=== PATIENT | female | born 1985 | race Caucasian/White ===

== ENCOUNTER 2024-02-24 05:57 | Emergency (ER) | payer MEDICAID, SELFPAY ==
[2024-02-24 06:15] VITALS: BP 126/86; PULSE 94; RESP 18; TEMP 36.7; O2SAT 99; BMI 33.1
--- NOTE | 2024-02-24 07:11 | ED_ITS ---
HPI - General Adult General Chief complaint: Vaginal Bleeding Stated complaint: abnormal vaginal bleeding Time Seen by Provider: 02/24/24 06:43 Source: patient Mode of arrival: ambulatory Limitations: no limitations History of Present Illness HPI narrative: 38-year-old female presents to the ED with a heavy menstrual cycle. She reports that her menstrual cycles are irregular, typically having 8 or so per year but they may come monthly and then may come once every 3 months or so. She did have a menstrual cycle last month as well. Reports that she did not have a lot of cramps or other warning that her menstrual cycle was coming, she had some mucus yesterday and then light bleeding. The bleeding became more heavy this morning and she started having pea-sized clots which is abnormal for her. Is not soaki ng through a pad per hour, pads are actually not at all soaked. She does report that she has had 3 children in the past and has had her tubes tied now. Denies chance of . No dizziness, lightheadedness or shortness of breath. Admits that she is anxious about the menstrual cycle. She does disclose that she started taking wegovy a few weeks ago after a couple months on zepbound. Denies prior history of pelvic surgeries, no use of anticoagulants. Home medications reviewed and accurate. Nonsmoker. Allergies to BuSpar and Celebrex which are intolerances ROS notable for the menstrual symptoms as above only, otherwise denies times 12 systems. Related Data Home Medications ?Medication ?Instructions ?Recorded ?Confirmed semaglutide (weight loss) 0.5 0.5 mg subcut Q7D 02/24/24 02/24/24 mg/0.5 mL subcutaneous pen injector (Wegovy) venlafaxine 37.5 mg 37.5 mg PO 3XD 02/24/24 02/24/24 capsule,extended release 24 hr Allergies Allergy/AdvReac Type Severity Reaction Status Date / Time buspirone [From BuSpar] AdvReac Severe Suicidal Verified 02/24/24 06:19 Thoughts celecoxib [From Celebrex] AdvReac Severe Suicidal Verified 02/24/24 06:19 Thoughts Exam Const: Vital Signs, click to edit/add: Vital Signs - 24 hr 02/24/24 06:15 Temperature 98.1 F Pulse Rate [Right Pulse Oximeter] 94 Respiratory Rate 18 Blood Pressure [Ri ght Upper Arm] 126/86 Pulse Oximetry 99 Oxygen Delivery Me thod Room Air Documenting provider has reviewed patient's vital signs: yes Common normals: no apparent distress General appearance: comfortable and well kempt HENMT: Common normals: normocephalic and oropharynx normal Head and scalp: normocephalic Mouth: oral and palatal mucosa normal Eye: Common normals: conjunctivae normal General eye: normal appearance of both eyes Conjunctiva: conjunctiva(e) normal Resp: Common normals: normal respiratory effort Effort & inspection: able to speak in complete sentences : Common normals: external appearance normal, appearance of the vagina normal and appearance of the cervix normal Other: Moderate vaginal bleeding, dark red in color. Few stringy clots none larger than IP. Bimanual exam with non gravid feeling uterus, cannot discretely feel her ovaries due to body habitus but no obvious mass or enlargement. Extremity: Common normals: normal to inspection and normal capillary refill Psych: Appearance: well kempt Attitude: engaged Activity/motor behavior: appropriate eye contact Attention/concentration: attention grossly intact Insight: insight good Judgement: judgment good Skin: Common normals: no rashes or lesions noted General skin exam: no rashes or lesions noted Course Course ED Course: Stable vital signs, no hypotension, tachycardia. No heavy bleeding seen on pelvic exam. No large clots. Recommended a test and hemoglobin. Counseled that there could be a connection between her use of wegovy and a change in her menstrual cycles. This is often seen and is assigned often of hormone scientology and tends to improve after a few cycles. Alarm symptoms reviewed that would warrant ED presentation. I would recommend that she make a follow-up appointment with her primary care provider to further discuss her menstrual cycles, consider thyroid testing if it has not been done within the last year, pelvic ultrasound if symptoms persist. She should definitely see them if the bleeding last longer than 7 days or if she has more than to heavy cycles in a row. Okay to use Tylenol and/or ibuprofen for any cramps. Vital Signs Vital signs: Initial Vital Signs Temperature 98.1 F 02/24/24 06:15 Temperature Source Temporal Artery Scan 02/24/24 06:15 Pulse Rate 94 02/24/24 06:15 Respiratory Rate 18 02/24/24 06:15 Blood Pressure 126/86 02/24/24 06:15 Blood Pressure Mean 99 02/24/24 06:15 Blood Pressure Position Sitting 02/24/24 06:15 Pulse Oximetry 99 02/24/24 06:15 Oxygen Delivery Method Room Air 02/24/24 06:15 Vital Signs Temperature 98.1 F 02/24/24 06:15 Pulse Rate 94 02/24/24 06:15 Respiratory Rate 18 02/24/24 06:15 Blood Pressure 126/86 02/24/24 06:15 Pulse Oximetry 99 02/24/24 06:15 Oxygen Delivery Method Room Air 02/24/24 06:15 Temperature 98.1 F 02/24/24 06:15 Pulse Rate 94 02/24/24 06:15 Respiratory Rate 18 02/24/24 06:15 Blood Pressure 126/86 02/24/24 06:15 Pulse Oximetry 99 02/24/24 06:15 Oxygen Delivery Method Room Air 02/24/24 06:15 Medical Decision Making Lab Data Lab results reviewed: Yes I reviewed the patient's lab results Lab results narrative: Hemoglobin appropriate, no leukocytosis, test negative. Labs: Lab Results 02/24/24 02/24/24 Range/Units 07:15 07:25 WBC 7.15 (4.50-11.00) K/uL RBC 3.78 L (4.00-5.20) m/uL Hgb 11.9 L (12.0-16.0) gm/dL Hct 35.8 (33.0-51.0) % MCV 95 (80-100) fL MCH 32 (26-34) pg MCHC 33 (32-36) gm/dL RDW Coeff of Kavita 12.9 (11.5-15.5) % Plt Count 352 (140-440) K/uL Neut % (Auto) 62.1 (42.0-72.0) % Lymph % (Auto) 28.4 (20-44) % [place] % (Auto) 7.8 (0.0-11.0) % Eos % (Auto) 1.3 (0.0-7.0) % Baso % (Auto) 0.3 (0.0-3.0) % Neut # (Auto) 4.44 (1.7-7.0) K/uL Lymph # (Auto) 2.03 (0.90-2.90) K/uL [place] # (Auto) 0.60 (0.00-0.90) K/UL Eos # (Auto) 0.09 (0.00-0.50) K/uL Baso # (Auto) 0.02 (0.00-0.30) K/uL Abs Immat Gran (auto) 0.01 (0.00-0.30) K/uL Imm/Tot Granulo (auto) 0.1 % Urine HCG, Qual Negative (Negative) Discharge Plan Discharge Clinical Impression: Dysfunctional uterine bleeding Patient Disposition: Home w/ Parent or Adult Condition: Stable Instructions: Abnormal (Dysfunctional) Uterine Bleeding (ED) Additional Instructions: As we discussed, your bleeding is abnormal for you but is not a dangerous amount as long as this does not persist for more than a few days. Please come back to the emergency department if you are feeling very weak, dizzy, short of breath from the bleeding or if you have very large clots or are more than soaking through a full pad every hour for more than a few hours in a row. It is okay to use Tylenol and/or ibuprofen as needed for any cramping or pain. I do wonder if there is a connection between your use of wegovy and this heavy period, But in a positive light. We use those medications now for PCOS, anovulatory cycles and infertility because they can help rebalance hormones. Often, you will have a few very heavy periods and then things will normalize. I would recommend that if her bleeding persists for more than 7 days that you follow-up with your primary care provider to discuss management and if you have more than to heavy cycles in a row, you should also discuss this with her primary care provider. Your blood work today does not show any signs of anemia. You may return to unrestricted work, school, all other activities. Your hemoglobin is 11.9 today and her test is of course negative. Activity Level: No Restrictions Discharge Diet: Regular Prescriptions: No Action Wegovy 0.5 mg/0.5 mL pen injector 0.5 mg subcut Q7D venlafaxine 37.5 mg capsule,extended release 24hr 37.5 mg PO 3XD Follow Up/Referrals: Farhad Calvo MD [Primary Care Provider] - Stand Alone Forms: [employer] Info Instructions
[2024-02-24 07:23] LABS: Basophils Absolute Auto 0.02 K/uL (0.00-0.30); Basophils Percent Auto 0.3 % (0.0-3.0); Eosinophils Absolute Auto 0.09 K/uL (0.00-0.50); Eosinophils Percent Auto 1.3 % (0.0-7.0); Hematocrit 35.8 % (33.0-51.0); Hemoglobin* 11.9 gm/dL (12.0-16.0); Immature Granulocytes Abs Auto 0.01 K/uL (0.00-0.30); Immature Granulocytes Pct Auto 0.1 %; Lymphocytes Absolute Auto 2.03 K/uL (0.90-2.90); Lymphocytes Percent Auto 28.4 % (20-44); Mean Corpuscular HGB Conc 33 gm/dL (32-36); Mean Corpuscular Hemoglobin 32 pg (26-34); Mean Corpuscular Volume 95 fL (80-100); Monocytes Percent Auto 7.8 % (0.0-11.0); Neutrophils Absolute Auto 4.44 K/uL (1.7-7.0); Neutrophils Percent Auto 62.1 % (42.0-72.0); Platelet Count* 352 K/uL (140-440); RDW Coefficient of Variation % 12.9 % (11.5-15.5); Red Blood Count 3.78 m/uL (4.00-5.20); White Blood Count* 7.15 K/uL (4.50-11.00)
[2024-02-24 07:27] LABS: Slide Review Reflex No
[2024-02-24 07:33] LABS: Ur HCG Qualitative* Negative (Negative)
== END 2024-02-24 07:46 | disposition home or self-care (01) ==
PROVIDERS: Emergency Provider Family Medicine; PCP Family Medicine
DX: N93.8 Other specified abnormal uterine and vaginal bleeding (principal)
CPT/HCPCS: 36415; 81025; 85025; 99283

== ENCOUNTER 2024-05-19 00:25 | Emergency (ER) | payer MEDICAID, SELFPAY ==
[2024-05-19 01:07] VITALS: BP 122/79; PULSE 101; RESP 24; TEMP 36.5; O2SAT 98; BMI 32.9
--- NOTE | 2024-05-19 01:28 | CRLHL7_ITS ---
For Patients: As a result of the Century Cures Act, medical imaging exams and procedure reports are released immediately into your electronic medical record. You may view this report before your referring provider. If you have questions, please contact your health care provider. INDICATION: Abdominal pain. TECHNIQUE: CT abdomen and pelvis acquired with 89 cc of Isovue 370 IV contrast. COMPARISON: None. FINDINGS: Lower chest: Unremarkable. Liver: Diffuse fatty infiltration. Normal contour. No suspicious mass. Gallbladder and bile ducts: Unremarkable. No stones or inflammation. No biliary dilatation. Pancreas: Unremarkable. No mass or inflammation. Spleen: Unremarkable. Normal in size. No masses. Adrenal glands: Unremarkable. No nodules. Kidneys: Unremarkable. No suspicious masses, stones, or hydronephrosis. GI tract: Unremarkable. Normal in caliber. No sign of mass or inflammation. Normal appendix. Vasculature: Abdominal aorta is normal in caliber. Mesenteric arteries are patent. Lymph nodes: No lymphadenopathy. Peritoneum/Abdominal Wall: Tiny fat-containing umbilical hernia. No free air or significant free fluid. Pelvis: Unremarkable. Bones: Unremarkable for age. IMPRESSION: 1. No acute findings within the abdomen or pelvis. Normal appendix. 2. Hepatic steatosis. Please note that all CT scans at this facility use dose modulation, iterative reconstruction, and/or weight-based dosing when appropriate to reduce radiation dose to as low as reasonably achievable. Dictated by Duncan Farr MD @ 05/19/2024 2:07:01 AM (Electronically Signed)
--- NOTE | 2024-05-19 01:29 | ED.ABDPAIN ---
HPI - Abdominal Pain General Chief Complaint: Abdominal Pain Stated Complaint: upper abdominal and back pain Time Seen by Provider: 05/19/24 00:28 History of Present Illness HPI narrative: Patient is a 38-year-old woman who has had paroxysms of abdominal pain in the upper portion of her abdomen off and on for last several days worse tonight. Pain is 8/10 located in the epigastrium or and relieved by belching. He does extend through to her back. She states she is not she has had tubal ligation previously. She has no reflux symptoms no change in her bowel or bladder no vomiting but she has been feeling nauseous. Patient otherwise has been in her usual state of health. Related Data Home Medications ?Medication ?Instructions ?Recorded ?Confirmed semaglutide (weight loss) 0.5 0.5 mg subcut Q7D 02/24/24 05/19/24 mg/0.5 mL subcutaneous pen injector (Wegovy) venlafaxine 37.5 mg 37.5 mg PO 3XD 02/24/24 05/19/24 capsule,extended release 24 hr Allergies Allergy/AdvReac Type Severity Reaction Status Date / Time buspirone [From BuSpar] AdvReac Severe Suicidal Verified 05/19/24 01:12 Thoughts celecoxib [From Celebrex] AdvReac Severe Suicidal Verified 05/19/24 01:12 Thoughts Review of Systems Status of ROS Reports: 10 or more systems reviewed and unremarkable except as noted in History and below [facility] Social History Smoking Status: Never smoker Second hand tobacco smoke exposure: No How often do you have a drink containing alcohol: never How often do you have six or more drinks on one occasion: Never AUDIT-C Alcohol total score: 0 Non-prescribed substance use: denies use service: No Exam Narrative: Exam Narrative: EXAM GENERAL: Patient appears comfortable and well. EYES: No scleral icterus. LYMPH: No supraclavicular or cervical lymphadenopathy. SKIN: Visible skin seen during exam normal or with benign process only. EXT: No dependent lower extremity pedal edema. HEART: Regular rate and rhythm with no murmurs, rubs, or gallops. LUNGS: Clear to auscultation bilaterally with no crackles or wheezes. ABD: Soft, non tender, non distended. PSYCH: Good eye contact, speech is not pressured. Const: Vital Signs, click to edit/add: Vital Signs - 24 hr 05/19/24 01:07 05/19/24 03:47 Temperature 97.7 F 97.8 F Pulse Rate [Pulse Oximeter] 101 H 77 Respiratory Rate 24 18 Blood Pressure [Ri ght Upper Arm] 122/79 121/85 Pulse Oximetry 98 97 Oxygen Delivery Me thod Room Air Room Air Course Course ED Course: Patient seen and examined. Normal saline Zofran given CBC CMP amylase CT abdomen pelvis pending. Vital Signs Vital signs: Initial Vital Signs Temperature 97.7 F 05/19/24 01:07 Temperature Source Temporal Artery Scan 05/19/24 01:07 Pulse Rate 101 H 05/19/24 01:07 Pulse Rhythm Regular 05/19/24 01:07 Pulse Strength 3+ Normal 05/19/24 01:07 Respiratory Rate 24 05/19/24 01:07 Blood Pressure 122/79 05/19/24 01:07 Blood Pressure Mean 93 05/19/24 01:07 Blood Pressure Position Sitting 05/19/24 01:07 Pulse Oximetry 98 05/19/24 01:07 Oxygen Delivery Method Room Air 05/19/24 01:07 Vital Signs Temperature 97.7 F 05/19/24 01:07 Pulse Rate 101 H 05/19/24 01:07 Respiratory Rate 24 05/19/24 01:07 Blood Pressure 122/79 05/19/24 01:07 Pulse Oximetry 98 05/19/24 01:07 Oxygen Delivery Method Room Air 05/19/24 01:07 Temperature 97.8 F 05/19/24 03:47 Pulse Rate 77 05/19/24 03:47 Respiratory Rate 18 05/19/24 03:47 Blood Pressure 121/85 05/19/24 03:47 Pulse Oximetry 97 05/19/24 03:47 Oxygen Delivery Method Room Air 05/19/24 03:47 Medications Administered Medications: Discontinued Medications Generic Name Dose Route Start Last Admin Trade Name Freq PRN Reason Stop Dose Admin Sodium Chloride 1,000 mls @ 1,000 mls/hr 05/19/24 01:15 05/19/24 03:09 0.9 % Sodium Chloride 1000 Ml IV 05/19/24 02:14 Infused .Q1H RHODA Infusion MDM - Abdominal Pain MDM Narrative Medical decision making narrative: Patient presents with severe abdominal pain. We were able to get the pain go away with normal saline Zofran. She does have elevation in her liver function tests but reasonable bilirubin. CT of the abdomen pelvis is largely unremarkable with the exception of CHAUHAN. Ultrasound gallbladder is negative for acute cholecystitis but she does have cholelithiasis. She has been taking would go be which we will hold at this time. I asked her to follow up with her doctor to repeat her liver function tests. Differential diagnosis includes but not limited to acute cholecystitis cholelithiasis pancreatitis hepatitis. Lab Data Labs: Lab Results 05/19/24 Range/Units 01:35 WBC 10.09 (4.50-11.00) K/uL RBC 3.68 L (4.00-5.20) m/uL Hgb 11.7 L (12.0-16.0) gm/dL Hct 34.8 (33.0-51.0) % MCV 95 (80-100) fL MCH 32 (26-34) pg MCHC 34 (32-36) gm/dL RDW Coeff of Kavita 12.9 (11.5-15.5) % Plt Count 331 (140-440) K/uL Neut % (Auto) 67.1 (42.0-72.0) % Lymph % (Auto) 23.8 (20-44) % [place] % (Auto) 8.4 (0.0-11.0) % Eos % (Auto) 0.3 (0.0-7.0) % Baso % (Auto) 0.3 (0.0-3.0) % Neut # (Auto) 6.77 (1.7-7.0) K/uL Lymph # (Auto) 2.40 (0.90-2.90) K/uL [place] # (Auto) 0.80 (0.00-0.90) K/UL Eos # (Auto) 0.03 (0.00-0.50) K/uL Baso # (Auto) 0.03 (0.00-0.30) K/uL Abs Immat Gran (auto) 0.01 (0.00-0.30) K/uL Imm/Tot Granulo (auto) 0.1 % Sodium 139 (135-149) mmol/L Potassium 3.4 L (3.6-5.1) mmol/L Chloride 105 (96-114) mmol/L Carbon Dioxide 25 (20-32) mmol/L Anion Gap 9 (7-15) mEq/L BUN 13 (5-24) mg/dL Creatinine 0.6 (0.5-1.5) mg/dL Estimated Creat Clear 102.52 Estimated GFR 119 ml/min Glucose 117 H (60-115) mg/dL Calcium 8.8 (8.4-10.6) mg/dL Total Bilirubin 0.7 (0.1-1.5) mg/dL AST 446 H (12-35) U/L ALT 183 H (4-35) U/L Alkaline Phosphatase 101 (40-150) U/L Total Protein 7.0 (6.0-8.3) g/dL Albumin 4.2 (3.3-5.0) g/dL Lipase 89 (23-300) U/L Discharge Plan Discharge Clinical Impression: Abdominal pain Patient Disposition: Home, Self-Care Condition: Stable Instructions: Abdominal Pain (ED) Additional Instructions: Stop Wegovy Advance diet as tolerated Follow-up with your doctor to repeat liver function tests Activity Level: No Restrictions Discharge Diet: Regular Prescriptions: No Action Wegovy 0.5 mg/0.5 mL pen injector 0.5 mg subcut Q7D venlafaxine 37.5 mg capsule,extended release 24hr 37.5 mg PO 3XD Follow Up/Referrals: Farhad Calvo MD [Referring] - Stand Alone Forms: [employer] Info Instructions
--- OUTSIDE RECORDS SUMMARY | 2024-05-19 01:47 | XMS_ITS | Clinical Summary ---
Author Organization [facility] Address [address] [place] [address]. [place] [address] Care Team Providers Care Ends Down Checker Name Role Phone Farhad Calvo Primary Care Provider Unavailmaximo e Allergies Active Allergy Reactions Criticality Noted Date Comments Buspirone Other (See Comments) 01/21/2022 FELT PANICY Citalopram 01/21/2022 FELT PANICY Medications Medication Sig Dispensed Refills Start Date End Date Status LORazepam (ATIVAN) 0.5 MG tablet Take 0.5 mg by mouth 2 times daily as needed for anxiety 0.5-1 tablet Active acetaminophen (TYLENOL) 325 MG tablet Take 325-650 mg by mouth every 6 hours as needed for mild pain 1-2 tabs Active ibuprofen (ADVIL/MOTRIN) 200 MG tablet Take 200 mg by mouth every 6 hours as needed for mild pain 2-4 tabs Active venlafaxine (EFFEXOR XR) 37.5 MG 24 hr capsule Take 37.5 mg by mouth daily Active oxyCODONE (ROXICODONE) 5 MG tablet Take 5 mg by mouth every 4 hours as needed for severe pain 1-2 Active oxyCODONE (ROXICODONE) 5 MG tabletIndications:St atus post bilateral breast reduction Take 1-2 tablets (5-10 mg) by mouth every 4 hours as needed for moderate to severe pain 20 tablet 03/05/2022 Active senna-docusate (SENOKOT-S/PERICOLAC E) 8.6-50 MG tabletIndications:St atus post bilateral breast reduction Take 1-2 tablets by mouth 2 times daily 120 Units 03/05/2022 Active Social History Tobacco Use Types Packs/Day Years Used Date Smoking Tobacco: Never Smokeless Tobacco: Never Alcohol Use Standard Drinks/Week Comments Not Currently 0 (1 standard drink = 0.6 oz pur e alcohol) Adolescent Education Answer Date Record ed Getting School Help Needed Not on file 05/29 Sex and Gender Information Value Date Recorded Sex Assigned at Not on file Gender Identity Not on file Sexual Orientation Not on file Last Filed Vital Signs Vital Sign Reading Time Taken Comments Blood Pressure 114/82 03/05/2022 1:27 PM CDT Pulse 77 03/05/2022 1:27 PM CDT Temperature 35.9 ??C (96.6 ??F) 03/05/2022 1:27 PM CD T Respiratory Rate 16 03/05/2022 1:27 PM CDT Oxygen Saturation 97% 03/05/2022 1:27 PM CDT Inhaled Oxygen Concentration - - Weight 89.8 kg (198 lb) 03/05/2022 6:01 AM CDT Height 157.5 cm (5' 2) 03/05/2022 6:01 AM CDT Body Mass Index 36.21 03/05/2022 6:01 AM CDT Plan of Treatment Health Maintenance Due Date Last Done Comments ADVANCE CARE PLANNING 1987 ANNUAL REVIEW OF HM ORDERS 1987 GLUCOSE 1987 YEARLY PREVENTIVE VISIT 1987 HIV SCREENING 11/14/2002 HEPATITIS C SCREENING 11/14/2005 HEPATITIS B IMMUNIZATION (1 of 3 - 19+ 3-dose series) 11/14/2006 PAP 11/14/2008 PHQ-2 (once per calendar year) 2023 COVID-19 Vaccine ( season) 2024 08/19/2021, 08/07/2021, 10/17/2020, Additional history exists INFLUENZA VACCINE (#1) 2024 , 06/20/2020, 06/20/2020, Additional history exists DTAP/TDAP/TD IMMUNIZATION (3 - Td or Tdap) 09/10/2027 09/10/2017, 01/05/2011 HPV IMMUNIZATION Completed 07/18/2013, 12/2012, 07/09/2011 MENINGITIS IMMUNIZATION Aged Out No l onger eligible based on patient's age to complete this topic Pneumococcal Vaccine: Pediatrics (0 to 5 Years) and At-Risk Patients (6 to 64 Years) Aged Out No longer eligible based on patient's age to complete this topic RSV MONOCLONAL ANTIBODY Aged Out No l onger eligible based on patient's age to complete this topic Care Teams Ends Down Checker Relationship Specialty Start Date End Date Farhad Calvo PCP - General Family Medicine 03/05/22
--- OUTSIDE RECORDS SUMMARY | 2024-05-19 01:47 | XMS_ITS | Clinical Summary ---
Author Organization [employer] [facility] Address [place], [place] [address] Care Team Providers Care Appeals Manager Name Role Phone Eric Winter MD Unavailable [phone] Ida Cotter MD Primary Care Provider Maureen Marquez CIRCLE SHEAR OPERATOR Unavailable [phone] Oswald Nesbitt RN Unavailable Allergies Active Allergy Reactions Criticality Noted Date Comments Buspirone Other - Describe In Comment Field Anxiety Citalopram Other - Describe In Comment Field Depression Medications Medication Sig Dispensed Refills Start Date End Date Status LORazepam (ATIVAN) 0.5 mg tabIndications:An xiety Take 0.5-1 Tablets (0.25-0.5 mg) by mouth 2 times daily if needed for Anxiety. 10 Tablet 3 Active cyclobenzaprine (FLEXERIL) 10 mg tabletIndications :Acute right-sided low back pain without sciatica Take 1 Tablet (10 mg) by mouth 3 times daily if needed for Muscle Spasm. 21 Tablet 3 Active metFORMIN (GLUCOPHAGE XR) 500 mg Extended-Release tabletIndications :Obesity, Class II, BMI 35-39.9 TAKE TWO TABLETS BY MOUTH DAILY WITH EVENING MEAL 60 Tablet 4 Active semaglutide (Wegovy) 0.25 mg/0.5 mL subcutaneous penIndications:Ob esity, Class I, BMI 30-34.9 Inject 0.25 mg subcutaneous once weekly. 2 mL 4 Active venlafaxine (EFFEXOR XR) 37.5 mg Extended-Release capsuleIndication s:Anxiety,Reactiv e depression Take 1 Capsule (37.5 mg) by mouth once daily with a meal. 30 Capsule 4 Active venlafaxine (EFFEXOR XR) 37.5 mg Extended-Release capsuleIndication s:Anxiety,Reactiv e depression Take 1 Capsule (37.5 mg) by mouth once daily with a meal. 90 Capsule 4 05/10/20 24 Discontinued Active Problems Patient Care Coordination No te Formatting of this note migh t be different from the original. mwl binder sent Kaylene Guerra .................... 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 Plan: Pap/HPV due 06/2025 Resolved Problems Problem Noted Date Diagnosed Date Resolved Date Syncope and collapse 06/26/2017 017 Supervision of other normal 01/20/2012 12/08/2012 LGSIL of cervix of undetermined significance 5 11/03/2016 Overview (09/16/2015): cannot exclude a higher grade lesion Encounters Date Type Department Care Team Description 05/05/2024 Refill [facility] [address] [place] [address] Ida Cotter MD Refill Request (Venlafaxine) 04/09/2024 Refill [facility] [address] [place] [address] Maureen Marquez, CIRCLE SHEAR OPERATOR Refill Request (Metformin) 03/16/[address] [place] [address] Maureen Marquez, CIRCLE SHEAR OPERATOR Refill Request (Wegovy) 02/21/[address] [place] [address] Maureen Marquez, CIRCLE SHEAR OPERATOR Refill Request (Wegovy) from Last 3 Months Immunizations Name Administration Dates Next Due AMB Influenza, IIV4 PF (=>6 mos Flulaval,Fluzone Fluarix)(Flu Clinic Only) 06/01/2014 COVID-19 vaccine (Moderna 100mcg/0.5mL) PF, MDV 08/19/2021,10/17/2020,09/19/2020 COVID-19 vaccine (Moderna Cristopher saira 50mcg/0.25mL) PF, MDV 08/07/2021 COVID-19 vaccine (Pfizer-Bio NTech 30mcg/0.3mL) 12YO+ BIVALENT PF, MDV 06/22/2022 Human Papilloma Virus Vaccine 07/18/2013, 013,07/09/2011 Influenza Virus, Unspecified 06/20/2020 Influenza, IIV3 (Age >=3 years) 06/06/20 20,07/25/2019,06/20/2015,2011,07/16/2005 Influenza, IIV4 06/14/2022,06/23/2021 Influenza, IIV4 (=>6mos) MDV 07/25/2019,05/14/20 17 Influenza, Injectable, Mdck, Quadrivalent, W/preservative 06/11/2022,06/20/2020 Tdap 09/10/2017,01/05/2011 Family History Medical History Relation Name Comments Cancer-colon Brother 53 Diabetes Father 76 Hyperlipidemia Father 76 Hypertension Father 76 Diabetes Mother 73 Hyperlipidemia Mother 73 Obesity Mother 73 Other Mother 73 Tachycardia Cancer-breast Sister 39 inflammation b reast cancer - 6 months afrer Dx Depression Sister 39 Relation Name Status Comments Brother 53 Father 76 Mother 73 Sister 39 Social History Tobacco Use Types Packs/Day Years Used Date Smoking Tobacco: Never Smokeless Tobacco: Never Tobacco Cessation:Counseling Given: Yes Alcohol Use Standard Drinks/Week Comments Yes 0 (1 standard drink = 0.6 oz pur e alcohol) socially PHQ-2 Answer Date Recorded PHQ-2 TOTAL SCORE 0 01/22/2023 Social Connections Answer Date Recorded Frequency of Communication with Friends and Fami ly Not on file 02/21/2023 Financial Resource Strain Answer Date R ecorded Difficulty of Paying Living Expenses 3 02/19/2022 Difficulty of Paying Living Expenses Not on file 02/19/2022 Food Insecurity Answer Date Recorded Worried About Running Out of Food in the Last Ye ar 1 02/19/2022 Transportation Needs Answer Date Record ed Lack of Transportation (Medical) 1 02/19/2022 Housing Stability Answer Date Recorded Unable to Pay for Housing in the Last Year 1 02/19/2022 Sex and Gender Information Value Date Recorded Sex Assigned at Female 09/23/2020 9:50 PM [employer] Gender Identity Female 09/23/2020 9:50 PM [employer] Sexual Orientation Not on file Obstetrics History Para Term AB IAB SAB Ectopic Multiple Livin g Live Births 3 3 3 3 3 Date Outcome GA Total Labor Labor/2nd/3rd Weight Sex Type Anes PTL Kierra A1 A5 Name Clin 2005 Term 41w 0d F Vag N Livin g Brandon 2011 Term 41w 0d 3.65 kg (8 lb 0.6 oz) F Vag Livin g Comments:System Genera khalida. Please review and update details. 2017 Term 38w 6d F Vag-S pont Epidur al Livin g Complications:None Last Filed Vital Signs Vital Sign Reading Time Taken Comments Blood Pressure 120/82 06/15/2023 12:47 PM CDT Pulse 81 06/15/2023 12:47 PM CDT Temperature 36.4 ??C (97.6 ??F) 06/02/2023 7:58 PM CD T Respiratory Rate 14 06/02/2023 7:58 PM CDT Oxygen Saturation 98% 06/15/2023 12:47 PM CDT Inhaled Oxygen Concentration - - Weight 84.4 kg (186 lb) 01/25/2024 11:00 AM CDT Height 157.5 cm (5' 2.01) 01/25/2024 11:00 AM C DT Body Mass Index 34.01 01/25/2024 11:00 AM CDT Plan of Treatment Upcoming Encounters Date Type Department Care Team (Late st Contact Info) Description 05/29/2024 12:40 PM CDT Office Visit [facility] [address] [place] [address] Ida Cotter MD [address] [place] [address] Health Maintenance Due Date Last Done Comments Hepatitis C screening for age 18-79 11/14/2005 Depression screening for age 12+ 01/23/2024 01/22/2023, 06/22/2022, 08/06/2021, Additional history exists COVID-19 vaccine series (2022- season) 2024 06/22/2022, 08/19/2021, 08/07/2021, Additional history exists Influenza for age 9-49 05/07/2024 , 06/11/2022, 06/23/2021, Additional history exists BMI (ht and wt on same day) for age 18+ 01/24/2025 01/25/2024, 01/25/2024, 11/30/2023, Additional history exists Pap test for age 21-65 06/22/2025 , 06/22/2022, 10/26/2016, Additional history exists Tetanus booster 09/10/2027 09/10/2017, 01/05/2011 HIV for age 15-65 Completed 12/25/2011 Tdap Completed 09/10/2017, 01/05/2011 Pneumococcal series for age 6-64 Aged Out No longer eligible based on patient's age to complete this topic Procedures Procedure Name Priority Date/Time Associated Diagnosis Comments HPV THIN PREP Routine 06/22/2022 4:40 PM CDT Pap smear for cervical cancer screening ANTI HIV 1/2 Routine 12/25/2011 12:42 PM CDT Supervision of other normal from Last 3 Months or Most Recently Relevant to Health Maintenance Results * HPV HIGH RISK (06/22/2022 4:40 PM CDT) TYPE 16 Negative Negative 06/26/2022 12:03 PM CDT [facility] TYPE 18 Negative Negative 06/26/2022 12:03 PM CDT [facility] OTHER HIGH RISK TYPES Negative Negative 06/26/2022 12:03 PM CDT [facility] Other (Cervical/Vagina l) Non-Blood / Unknown 06/22/2022 4:40 PM CDT 06/23/2022 4:16 PM CDT Narrative [facility] - 06/26/2022 12:03 PM CDT HPV types 16, 18, 31, 33, 35, 39, 45, 51, 52, 56, 58, 59, 66 and 68 DNA were undetectable or below the pre-set threshold. Methodology: Flora Juli 4800 HPV Test Farhad Calvo MD [facility] [address] [place] [address], * ANTI HIV 1/2 [31372.0] (12/25/2011 12:42 PM CDT) ANTI HIV 1/2 Non-reacti ve [facility] Blood specimen (specimen) BLOOD SPECIMEN / Unknown 12/25/2011 12:42 PM CDT 12/25/2011 12:31 PM CDT Farhad Calvo MD SEND OUTS [facility] [place]NAL ZIP [address] [place] [address] from Last 3 Months or Most Recently Relevant to Health Maintenance Advance Directives * Full Code (Latest Code Status on File) Date Activated Date Inactivated Comments 06/27/2021 12:57 PM 06/27/2021 8:59 PM Question Answer Comments Code Status Discussion: Not Discussed Care Teams Appeals Manager Relationship Specialty Start Date End Date Ida Cotter MD [address] [place] [address] PCP - General Family Practice 01/22/23 Eric Winter MD [address], [place] [address] [address] [place] [address] Cardiology Cardiovascular Disease 01/20/12 Maureen Marquez CIRCLE SHEAR OPERATOR [address] [place] [address] Nurse Practitioner - Family 07/26/23 Oswald Nesbitt, RN [address] [facility] [place] [place] [address] Registered Nurse 07/26/23
--- OUTSIDE RECORDS SUMMARY | 2024-05-19 01:47 | XMS_ITS | Referral Summary ---
Author Organization [facility] Address [address] [place] [address]. [place] [address] Care Team Providers Care Gizzard Skin Remover Name Role Phone Farhad Calvo Primary Care [...] 03/05/2022 6:01 AM CDT Plan of Treatment Not on file Care Teams Gizzard Skin Remover Relationship Specialty Start Date End Date Farhad Calvo PCP - General Family Medicine 03/05/22
--- OUTSIDE RECORDS SUMMARY | 2024-05-19 01:47 | XMS_ITS | Encounter Summary ---
Author Organization [facility] Address [address] [place] [address] Care Team Providers Care Abrasive Sawyer Name Role Phone Farhad Calvo Primary Care Provider Unavailabl e Encounter Details Date Type Department Care Team (Late st Contact Info) Description 02/09/2022 Orders Only [facility] Centralized Scheduling [address] [place] [address] Holland Laguna MD [address] [place] [address] Social History Tobacco Use Types Packs/Day Years Used Date Smoking Tobacco: Never Assessed Sex and Gender Information Value Date Recorded Sex Assigned at Not on file Gender Identity Not on file Sexual Orientation Not on file documented as of this encounter Plan of Treatment Not on file documented as of this encounter Visit Diagnoses Not on filedocumented in this encounter Care Teams Abrasive Sawyer Relationship Specialty Start Date End Date Farhad Calvo PCP - General Family Medicine 03/05/22 documented as of this encounter
[2024-05-19 01:51] LABS: Basophils Absolute Auto 0.03 K/uL (0.00-0.30); Basophils Percent Auto 0.3 % (0.0-3.0); Eosinophils Absolute Auto 0.03 K/uL (0.00-0.50); Eosinophils Percent Auto 0.3 % (0.0-7.0); Hematocrit 34.8 % (33.0-51.0); Hemoglobin* 11.7 gm/dL (12.0-16.0); Immature Granulocytes Abs Auto 0.01 K/uL (0.00-0.30); Immature Granulocytes Pct Auto 0.1 %; Lymphocytes Percent Auto 23.8 % (20-44); Mean Corpuscular HGB Conc 34 gm/dL (32-36); Mean Corpuscular Hemoglobin 32 pg (26-34); Mean Corpuscular Volume 95 fL (80-100); Monocytes Percent Auto 8.4 % (0.0-11.0); Neutrophils Absolute Auto 6.77 K/uL (1.7-7.0); Neutrophils Percent Auto 67.1 % (42.0-72.0); Platelet Count* 331 K/uL (140-440); RDW Coefficient of Variation % 12.9 % (11.5-15.5); Red Blood Count 3.68 m/uL (4.00-5.20); White Blood Count* 10.09 K/uL (4.50-11.00)
[2024-05-19 01:53] LABS: Slide Review Reflex No
[2024-05-19] MEDS: 0.9 % SODIUM CHLORIDE 1000 ml 1,000 ML IV (01:57)
[2024-05-19 02:08] LABS: Albumin* 4.2 g/dL (3.3-5.0)
[2024-05-19 02:09] LABS: Chloride* 105 mmol/L (96-114); Potassium* 3.4 mmol/L (3.6-5.1); Sodium* 139 mmol/L (135-149)
[2024-05-19 02:11] LABS: Alkaline Phosphatase* 101 U/L (40-150); Anion Gap 9 mEq/L (7-15); Aspartate Amino Transferase* 446 U/L (12-35); Bilirubin Total* 0.7 mg/dL (0.1-1.5); Blood Urea Nitrogen* 13 mg/dL (5-24); Carbon Dioxide* 25 mmol/L (20-32); Creatinine* 0.6 mg/dL (0.5-1.5); Est. Creatinine Clearance* 102.52; Estimated Glomerular Filt Rate 119 ml/min; Lipase* 89 U/L (23-300)
[2024-05-19 02:12] LABS: Alanine Aminotransferase* 183 U/L (4-35); Calcium* 8.8 mg/dL (8.4-10.6); Glucose* 117 mg/dL (60-115)
--- NOTE | 2024-05-19 02:27 | CRLHL7_ITS ---
For Patients: As a result of the Century Cures Act, medical imaging exams and procedure reports are released immediately into your electronic medical record. You may view this report before your referring provider. If you have questions, please contact your health care provider. Indication: Right upper quadrant abdominal pain Technique: Sonography of the abdomen was performed limited to the structures discussed below Comparison: There are no prior studies for comparison Findings: The liver shows abnormal increased echogenicity. The pattern is consistent with fatty infiltration with focal areas of sparing. No focal mass or intrahepatic biliary ductal dilation. Gallbladder wall thickness is normal at 1.9 millimeters. Multiple small stones are identified which are movable within the gallbladder. No pericholecystic fluid. No sonographic Alexander`s sign. The common duct measures 5 millimeters which is normal The pancreas was not adequately visualized due to overlying bowel gas. The right kidney is unremarkable in size and appearance. The right kidney measures 10.0 x 5.3 x 5.5 centimeters. Impression: Cholelithiasis without ultrasound evidence of acute cholecystitis or common duct obstruction. Hepatic steatosis with areas of sparing. Dictated by Tavo Friedman MD @ 05/19/2024 4:25:17 AM (Electronically Signed)
[2024-05-19 03:47] VITALS: BP 121/85; PULSE 77; RESP 18; TEMP 36.6; O2SAT 97
== END 2024-05-19 04:40 | disposition home or self-care (01) ==
PROVIDERS: Emergency Provider Internal Medicine; PCP Family Medicine
DX: R10.9 Unspecified abdominal pain (principal)
CPT/HCPCS: 36415; 74177; 76705; 80053; 83690; 85025; 99283; 99284; J7030; Q9967

== ENCOUNTER 2024-08-15 06:12 | Day surgery (SDC) | payer MEDICAID, SELFPAY ==
[2024-08-15] VITALS (16 sets, daily range): BP systolic 103–124; BP diastolic 64–87; PULSE 70–94; RESP 16–22; TEMP 36.1–36.6; O2SAT 94–99; BMI 33.9
--- OUTSIDE RECORDS SUMMARY | 2024-08-15 06:16 | XMS_ITS | Clinical Summary ---
Author Organization [employer] Address [place], [place] [address] Care Team Providers Care Collection Systems Foreman Name Role Phone Eric Winter MD Unavailable [phone] Ida Cotter MD Primary Care Provider Maureen Marquez DESKTOP SPECIALIST Unavailable [phone] Oswald Nesbitt RN Unavailable Allergies Active Allergy Reactions Criticality Noted Date Comments Buspirone Other - Describe In Comment Field Anxiety Citalopram Other - Describe In Comment Field Depression Medications cyclobenzaprine (FLEXERIL) 10 mg tabletIndications: Acute right-sided low back pain without sciatica Take 1 Tablet (10 mg) by mouth 3 times daily if needed for Muscle Spasm. 21 Tablet 06/02/20 23 Active omeprazole 20 mg tabletIndications: Postprandial RUQ pain Take 1 Tablet (20 mg) by mouth once daily before a meal. 90 Tablet 3 05/22/20 24 Active LORazepam (ATIVAN) 0.5 mg tabIndications:Anx iety Take 0.5-1 Tablets (0.25-0.5 mg) by mouth 2 times daily if needed for Anxiety. 10 Tablet 05/22/20 24 Active ondansetron (ZOFRAN ODT) 4 mg disintegrating tabletIndications: Bilious vomiting with nausea Place 1 Tablet (4 mg) on the tongue every 8 hours if needed for Nausea/Vomiting . 30 Tablet 05/22/20 24 Active simethicone (MYLICON DROPS) 20 mg/0.3 mL dropsIndications:B loating Take 0.6 mL (40 mg) by mouth 4 times daily if needed for Flatulence. Max dose: 500 mg per 24 hrs 30 mL 05/22/20 24 Active venlafaxine (EFFEXOR XR) 37.5 mg Extended-Release capsuleIndications :Anxiety,Reactive depression Take 1 Capsule (37.5 mg) by mouth once daily with a meal. 100 Capsule 3 05/29/20 24 Active metFORMIN (GLUCOPHAGE XR) 500 mg Extended-Release tabletIndications: Obesity, Class II, BMI 35-39.9 TAKE TWO TABLETS BY MOUTH DAILY WITH EVENING MEAL 60 Tablet 04/10/20 24 024 Discontin ued(*Med complete/ Regimen complete/ Level of care change) semaglutide (Wegovy) 0.25 mg/0.5 mL subcutaneous penIndications:Obe sity, Class I, BMI 30-34.9 Inject 0.25 mg subcutaneous once weekly. 2 mL 04/11/20 24 024 Discontin ued(*Med complete/ Regimen complete/ Level of care change) Active Problems Patient Care Coordination No te [...] LSIL, cannot exclude a higher-grade lesion 03/13/2005: [place] - ELLI 2 04/13/2008: NIL 01/05/2011: NIL 12/25/2011: NIL 09/05/2015: NIL / HPV negative 10/26/2016: NIL / HPV negative 06/2022 NIL/HPV negative. Plan: Pap/HPV due 06/2025 Resolved Problems Problem Noted Date Diagnosed Date Resolved Date Syncope and collapse 06/26/2017 017 Supervision of other normal 01/20/2012 12/08/2012 LGSIL of cervix of undetermined significance 11/03/2016 Overview (09/16/2015): cannot exclude a higher grade lesion Encounters Date Type Department Care Team Description 07/24/2024 8:45 AM BIOMEDICAL ELECTRONICS TECHNICIAN Preop Visit [facility] [address] [place] [address] Ida Cotter MD Preoperative Exam (Cholecystectomy, 08.15.2024 Dr Ridley, [facility], ) 07/24/2024 Travel 07/15/2024 Refill [facility] [address] [place] [address] Maureen Marquez NP Refill Request (Metformin) 07/12/2024 9:15 AM BIOMEDICAL ELECTRONICS TECHNICIAN Office Visit [facility] [address] [place] [address] Yolis Rdiley MD Consult (Abnormal biliary HIDA scan) 07/11/2024 Travel 07/10/2024 Transcribe Orders [facility] [address] [place] [address] Joaquin Christopher MD 07/05/2024 Telephone [facility] [address] [place] [address] Ida Cotter MD Form (Form questions.) 06/13/2024 3:45 PM CDT Orders Only [facility] [address] [facility] [address] [facility] [place] [facility] 06/13/2024 Travel 06/07/2024 8:45 AM CDT - 06/07/2024 11:59 PM CDT Hospital Encounter [facility] [address] [place] [address] Beverly Fraser DO Postprandial RUQ pain 06/07/2024 Travel 05/29/2024 12:40 PM CDT Office Visit [facility] [address] [facility] [address] Ida Cotter MD Physical (38 Year Old female ); Lab (wanting labs today instead of tomorrow ); Medication Management (Wanting to get back on wegovy stopped 2x weeks ago/); Immunization/Injecti on 05/29/2024 Travel 05/22/2024 2:05 PM CDT Office Visit [facility] [address] [facility] [place] [address] Beverly Fraser DO ER Follow up (Gallbladder-) 05/22/2024 Travel 05/19/2024 Orders Only [facility] Scanner 1 scan: (1-Ord) [facility] ABDOMEN LMTD, 05/19/2024 05/19/2024 Orders Only [facility] Scanner 1 scan: (1-Ord) [facility], ABDOMEN PELVIS W, 05/19/2024 from Last 3 Months Immunizations Name Administration Dates Next Due AMB Influenza, IIV4 PF (=>6 mos Flulaval,Fluzone Fluarix)(Flu Clinic Only) 06/01/2014 COVID-19 VACCINE SPIKEVAX (M ODERNA 50MCG/0.5ML) 12YO+ PFS 05/29/2024 COVID-19 vaccine (Moderna 100mcg/0.5mL) PF, MDV 08/19/2021,10/17/2020,09/19/2020 COVID-19 vaccine (Moderna Cristopher saira 50mcg/0.25mL) PF, MDV 08/07/2021 COVID-19 vaccine (Pfizer-Bio NTech 30mcg/0.3mL) 12YO+ BIVALENT PF, MDV 06/22/2022 Human Papilloma Virus Vaccine 07/18/2013, 013,07/09/2011 INFLUENZA, IIV3 PF (AGE >= 6 MO) 05/29/2024 Influenza Virus, Unspecified 06/20/2020 Influenza, IIV3 (Age [...] PHQ-2 Answer Date Recorded PHQ-2 TOTAL SCORE 1 05/29/2024 Social Connections Answer Date Recorded Do you often feel lonely or isolated from those around you? 0 05/29/2024 Financial Resource Strain Answer Date R ecorded Difficulty of Paying Living Expenses 3 05/29/2024 Difficulty of Paying Living Expenses Not on file 05/29/2024 Food Insecurity Answer Date Recorded Do you worry your food will run out before you are able to buy more? 1 05/29/2024 Transportation Needs Answer Date Record ed Does lack of transportation keep you from medica l appointments? 1 05/29/2024 Does lack of transportation keep you from work, meetings or getting things that you need? 1 05/29/2024 Housing Stability Answer Date Recorded What is your housing situation today? 1 05/29/2024 Comments No Sex and Gender Information Value Date Recorded Sex Assigned at Female 09/23/2020 9:50 PM BIOMEDICAL ELECTRONICS TECHNICIAN Legal Sex Female 5:49 AM BIOMEDICAL ELECTRONICS TECHNICIAN Gender Identity Female 09/23/2020 9:50 PM BIOMEDICAL ELECTRONICS TECHNICIAN Sexual Orientation Not on file Occupation Industry Job Start Date Job End Date Longterm Not on file Not on file Not on file Obstetrics History Para Term [...] Sign Reading Time Taken Comments Blood Pressure 114/71 07/24/2024 8:47 AM BIOMEDICAL ELECTRONICS TECHNICIAN Pulse 70 07/24/2024 8:47 AM BIOMEDICAL ELECTRONICS TECHNICIAN Temperature 36.4 C (97.6 F) 06/02/2023 7:58 PM CDT Respiratory Rate 14 06/02/2023 7:58 PM CDT Oxygen Saturation 98% 07/24/2024 8:47 AM BIOMEDICAL ELECTRONICS TECHNICIAN Inhaled Oxygen Concentration - - Weight 81.5 kg (179 lb 9.6 oz) 07/24/2024 8:47 A M BIOMEDICAL ELECTRONICS TECHNICIAN Height 157 cm (5' 1.81) 07/24/2024 8:47 AM BIOMEDICAL ELECTRONICS TECHNICIAN Body Mass Index 33.05 07/24/2024 8:47 AM BIOMEDICAL ELECTRONICS TECHNICIAN Plan of Treatment Upcoming Encounters Date Type Department Care Team (Late st Contact Info) Description 08/15/2024 8:00 AM BIOMEDICAL ELECTRONICS TECHNICIAN Office Visit [facility] [address] [place] [address] Yolis Ridley MD [address] [place] [address] Health Maintenance Due Date Last Done Comments Depression screening for age 12+ 05/29/2025 05/29/2024, 01/22/2023, 06/22/2022, Additional history exists BMI (ht and wt on same day) for age 18+ 07/24/2025 07/24/2024, 05/29/2024, 01/25/2024, Additional history exists Pap test for age 21-65 06/22/2027 , 06/22/2022, 10/26/2016, Additional history exists Tetanus booster 09/10/2027 09/10/2017, 01/05/2011 HIV for age 15-65 Completed 12/25/2011 Tdap Completed 09/10/2017, 01/05/2011 Hepatitis C screening for age 18-79 Completed 05/22/2024 COVID-19 vaccine series Completed 05/29/20 24, 06/22/2022, 08/19/2021, Additional history exists Influenza for age 9-49 Completed 4, 06/14/2022, 06/11/2022, Additional history exists Pneumococcal series for age 6-64 Aged Out No longer eligible based on patient's age to complete this topic Procedures Procedure Name Priority Date/Time Associated Diagnosis Comments ANTI HBC Routine 06/13/2024 3:56 PM CDT HEPATITIS A ANTIBODY TOTAL ([facility]) Routine 06/13/2024 3:56 PM CDT Elevated liver enzymes ANTINUCLEAR ANTIBODY BY IFA Routine 06/13/2024 3:56 PM CDT Elevated liver enzymes HEPATIC FUNCTION PANEL Routine 3:56 PM CDT Elevated liver enzymes NM HEPATOBILIARY IMAGING WITH EF Routine 06/07/2024 10:49 AM CDT Postprandial RUQ pain AMB CONSULT TO GASTROENTEROLOGY LORI 05/26/2024 7:08 PM CDT Elevated liver enzymes Fatty liver Dark urine URINALYSIS REFLEX NOTE ([facility] REFLEX ONLY) Routine 05/22/2024 2:30 PM CDT UA W/ SEDIMENT EXAM REFLEXED PER CRITERIA Routine 05/22/2024 2:30 PM CDT Dark urine HEPATIC FUNCTION PANEL Routine 4 2:30 PM CDT Elevated liver enzymes Fatty liver ANTI HCV Routine 05/22/2024 2:30 PM CDT Elevated liver enzymes Fatty liver HBSAG (HBS) Routine 05/22/2024 2:30 PM CDT Elevated liver enzymes Fatty liver ANTI HBS QUANT AHS Routine 05/22/2024 2: 30 PM CDT Elevated liver enzymes Fatty liver SCAN-ULTRASOUND REPORT 4 12:00 AM CDT SCAN-CT INTERPRETATION 4 12:00 AM CDT HPV HIGH RISK Routine 06/22/2022 4:40 PM CDT Pap smear for cervical cancer screening ANTI HIV 1/2 Routine 12/25/2011 12:42 PM CDT Supervision of other normal from Last 3 Months or Most Recently Relevant to Health Maintenance Results * (ABNORMAL) HEPATITIS A ANTIBODY TOTAL ([facility]) (06/13/2024 3:56 PM CDT) HEPATITIS A AB, TOTAL REACTIVE(A ) NON-REACTI VE [facility] Comment: For additional information, please refer to http://education.gamesGRABR.Exchangery/faq/ZNZ048 (This link is being provided for informational/ educational purposes only.) Blood BLOOD SPECIMEN / Unknown 06/13/2024 3:56 PM CDT 06/13/2024 3:57 PM CDT us Beverly Fraser DO SEND OUTS Final Result [facility] [address] [place] [address], [facility] [address] [place] [address] * ANTINUCLEAR ANTIBODY BY IFA (06/13/2024 3:56 PM CDT) DAKSHA SCREEN, IFA NEGATIVE NEGATIVE [facility] Comment: DAKSHA IFA is a first line screen for detecting the presence of up to approximately 150 autoantibodies in various autoimmune diseases. A negative DAKSHA IFA result suggests an DAKSHA-associated autoimmune disease is not present at this time, but is not definitive. If there is high clinical suspicion for Sjogren's syndrome, testing for anti-SS-A/Ro antibody should be considered. Anti-Lurdes-1 antibody should be considered for clinically suspected inflammatory myopathies. AC-0: Negative International Consensus on DAKSHA Patterns (https://doi.org/10.1515/mrwp-5279-2237) For additional information, please refer to http://ZapMe.[employer]aths Corporation/faq/WYS748 (This link is being provided for informational/ educational purposes only.) Blood BLOOD SPECIMEN / Unknown 06/13/2024 3:56 PM CDT 06/13/2024 3:57 PM CDT us Correxi AdWiredra DO CHEMISTRY Final Result [facility] [address] [place] [address], [facility] [address] [place] [address] * ANTI HBC (06/13/2024 3:56 PM CDT) Pathologist [facility] HEPATITIS B CORE AB TOTAL NON-REACTI VE NON-REACTI VE [facility] Comment: For additional information, please refer to http://ZapMe.gamesGRABR.Exchangery/faq/KUO637 (This link is being provided for informational/ educational purposes only.) 06/13/2024 3:56 PM CDT 06/13/2024 3:57 PM CDT SafetyCulturei AirXpandersqra DO SEND OUTS Final Result [facility] [address] [place] [address], [place] [phone] [facility] [address] [place] [address] * LIVER PANEL (HEPATIC FUNCTION PANEL) (06/13/2024 3:56 PM CDT) Only the most recent of2 resultswithin the time period is included. PROTEIN, TOTAL 6.8 6.1 - 8.1 g/dL [facility] ALBUMIN 4.1 3.6 - 5.1 g/dL [facility] GLOBULIN 2.7 1.9 - 3.7 g/dL (calc) [facility] ALBUMIN/GLOBULIN RATIO 1.5 1.0 - 2.5 (calc) [facility] BILIRUBIN, TOTAL 0.3 0.2 - 1.2 mg/dL [facility] BILIRUBIN, DIRECT 0.1 < OR = 0.2 mg/dL [facility] BILIRUBIN, INDIRECT 0.2 0.2 - 1.2 mg/dL (calc) [facility] ALKALINE PHOSPHATASE 78 31 - 125 U/L [facility] AST 20 10 - 30 U/L [facility] ALT 26 6 - 29 U/L [facility] Blood BLOOD SPECIMEN / Unknown 06/13/2024 3:56 PM CDT 06/13/2024 3:57 PM CDT us Dianai Bria DO CHEMISTRY Final Result [facility] [address] [place] [address], [place] [phone] [facility] [address] [place] [address] * NM HEPATOBILIARY IMAGING WITH EF (06/07/2024 10:49 AM CDT) Anatomical Region Laterality Modality LIVER Nuclear Medicine 06/07/2024 10:4 9 AM CDT Impressions 06/07/2024 1:14 PM CDT Absent gallbladder contraction response suggesting gallbladder dysfunction/biliary akinesia. Narrative 06/07/2024 1:14 PM CDT For Patients: As a result of the Cures Act, medical imaging exams and procedure reports are released immediately into your electronic medical record. You may view this report before your referring provider. If you have questions, please contact your health care provider. EXAM: NM HEPATOBILIARY IMAGING WITH EF LOCATION: [facility] [place] [facility] DATE: 06/07/2024 INDICATION: Postprandial RUQ Pain COMPARISON: None. TECHNIQUE: Tc-99m Mebrofenin 5.0 mCi, IV. Anterior planar imaging of the abdomen. 1.6 mcg of cholecystokinin analog, IV. Gallbladder imaging for 30-60 minutes. FINDINGS: Normal radionuclide activity in liver, gallbladder, bile ducts, and small bowel. No evidence of cystic or common duct obstruction or intrinsic liver disease. Absent gallbladder contraction response with relatively flat gallbladder ejection fraction curve. Procedure Note Yann Jacob MD - 06/07/2024 For Patients: As a result of the Cures Act, medical imagingexams and procedure reports are released immediately into your electronicmedical record. You may view this report before your referring provider.If you have questions, please contact your health care provider. EXAM: NM HEPATOBILIARY IMAGING WITH EF LOCATION: [facility] DATE: 06/07/2024 INDICATION: Postprandial RUQ Pain COMPARISON: None. TECHNIQUE: Tc-99m Mebrofenin 5.0 mCi, IV. Anterior planar imaging of theabdomen. 1.6 mcg of cholecystokinin analog, IV. Gallbladder imaging hbw66-33 minutes. FINDINGS: Normal radionuclide activity in liver, gallbladder, bile ducts,and small bowel. No evidence of cystic or common duct obstruction orintrinsic liver disease. Absent gallbladder contraction response withrelatively flat gallbladder ejection fraction curve. IMPRESSION: Absent gallbladder contraction response suggesting gallbladderdysfunction/biliary akinesia. us Beverly Fraser DO [place] Final Result * URINALYSIS REFLEX NOTE ([facility] REFLEX ONLY) (05/22/2024 2:30 PM CDT) NOTE UA [facility] Comment: This urine was analyzed for the presence of WBC, RBC, bacteria, casts, and other formed elements. Only those elements seen were reported. 05/22/2024 2:30 PM CDT 05/22/2024 2:32 PM CDT Ade Ianqra DO SEND OUTS Final Result Performing Organization Address [facility] Co de Phone Number [facility]cue [facility] [address] [place] [address], [place] [phone] [facility] [address] [place] [address] * HBSAG (05/22/2024 2:30 PM CDT) Pathologist [facility] HEPATITIS B SURFACE ANTIGEN NON-REACTI VE NON-REACTI VE [facility] Comment: For additional information, please refer to http://education.RingCaptcha/faq/VDP654 (This link is being provided for informational/ educational purposes only.) Blood BLOOD SPECIMEN / Unknown 05/22/2024 2:30 PM CDT 05/22/2024 2:32 PM CDT Beverly Fraser DO SEND OUTS Final Result Performing Organization Address [facility] Co de Phone Number [facility] [address] [place] [address], [facility] [address] [place] [address] * ANTI HCV (05/22/2024 2:30 PM CDT) Pathologist [facility] HEPATITIS C ANTIBODY NON-REACTI VE NON-REACT VIBHA [facility] Comment: HCV antibody was non-reactive. There is no laboratory evidence of HCV infection. In most cases, no further action is required. However, if recent HCV exposure is suspected, a test for HCV RNA (test code 96168) is suggested. For additional information please refer to http://ZapMe.RingCaptcha/faq/TAU71s3 (This link is being provided for informational/ educational purposes only.) Blood BLOOD SPECIMEN / Unknown 05/22/2024 2:30 PM CDT 05/22/2024 2:32 PM CDT [facility] DO SEND OUTS Final Result Performing Organization Address [facility] de Phone Number [facility] [address] [place] [address], [facility] [address] [place] [address] * ANTI HBS QUANT AHS (05/22/2024 2:30 PM CDT) HEPATITIS B SURFACE AB IMMUNITY, QN 68 > OR = 10 mIU/mL [facility] Comment: Patient has immunity to hepatitis B virus. For additional information, please refer to http://ZapMe.RingCaptcha/faq/QAM749 (This link is being provided for informational/ educational purposes only). Blood BLOOD SPECIMEN / Unknown 05/22/2024 2:30 PM CDT 05/22/2024 2:32 PM CDT [facility] Ian DO SEND OUTS Final Result Performing Organization Address [facility] de Phone Number [facility] [address] [place] [address], [place] [phone] [facility] [address] [place] [address] * (ABNORMAL) UA W/ SEDIMENT EXAM REFLEXED PER CRITERIA (05/22/2024 2:30 PM CDT) COLOR DARK YELLOW YELLOW [facility] APPEARANCE CLEAR CLEAR [facility] SPECIFIC GRAVITY 1.032 1.001 - 1.035 [facility] PH 6.0 5.0 - 8.0 [facility] GLUCOSE NEGATIVE NEGATIVE [facility] BILIRUBIN 2+(A) NEGATIVE [facility] Comment: Presumptive positive bilirubin. Consider confirmation by serum bilirubin if clinically indicated. KETONES 1+(A) NEGATIVE [facility] OCCULT BLOOD NEGATIVE NEGATIVE [facility] PROTEIN 1+(A) NEGATIVE [facility] NITRITE POSITIVE(A) NEGATIVE [facility] LEUKOCYTE ESTERASE 1+(A) NEGATIVE [facility] WBC UA 20-40(A) < OR = 5 /HPF [facility] RBC UA 0-2 < OR = 2 /HPF [facility] SQUAMOUS EPITHELIAL CELLS UA 6-10(A) < OR = 5 /HPF [facility] BACTERIA UA FEW(A) NONE SEEN /HPF [facility] HYALINE CAST NONE SEEN NONE SEEN /LPF [facility] Urine URINE SPECIMEN / Unknown 05/22/2024 2:30 PM CDT 05/22/2024 2:32 PM CDT us Adei Bria DO URINE Final Result [facility] [address] [place] [address], [facility] [address] [place] [address] * SCAN-ULTRASOUND REPORT (05/19/2024 12:00 AM CDT) Anatomical Region Laterality Modality Other us Scanner OTHER Final Result * SCAN-CT INTERPRETATION (05/19/2024 12:00 AM CDT) Anatomical Region Laterality Modality Other us Scanner OTHER Final Result * HPV HIGH RISK (06/22/2022 4:40 PM CDT) TYPE 16 Negative Negative 06/26/2022 12:03 PM CDT [facility] TYPE 18 Negative Negative 06/26/2022 12:03 PM CDT [facility] LAB[facility]ORY OTHER HIGH RISK TYPES Negative Negative 06/26/2022 12:03 PM CDT [facility] Other (Cervical/Vagina l) Non-Blood / Unknown 06/22/2022 4:40 PM CDT 06/23/2022 4:16 PM CDT Narrative [facility] - 06/26/2022 12:03 PM CDT HPV types 16, 18, 31, 33, 35, 39, 45, 51, 52, 56, 58, 59, 66 and 68 DNA were undetectable or below the pre-set threshold. Methodology: Flora Juli 4800 HPV Test Farhad Calvo MD MICROBIOLOGY Final Re sult [facility] [address] [place] [address], * ANTI HIV 1/2 [24594.0] (12/25/2011 12:42 PM CDT) ANTI HIV 1/2 Non-reacti ve [facility] Blood specimen (specimen) BLOOD SPECIMEN / Unknown 12/25/2011 12:42 PM CDT 12/25/2011 12:31 PM CDT us Farhad Calvo MD SEND OUTS Final Re sult [facility] [place]NAL ZIP [address] [place] [address] from Last 3 Months or Most Recently Relevant to Health Maintenance Insurance * Guarantor: Jodi [place] Account Type Relation to Patient Date of Phone Billing Address Personal/Family Self 1985 [id number] [place] [address] [facility] * Guarantor: Jodi [place] Account Type Relation to Patient Date of Phone Billing Address Workers Comp Self 1985 [id number] [place] [address] WORKERS COMP [facility] [place] Advance Directives * Full Code (Latest Code Status on File) Date Activated Date Inactivated Comments 06/27/2021 12:57 PM 06/27/2021 8:59 PM Question Answer Comments Code Status Discussion: Not Discussed Care Teams Collection Systems Foreman Relationship Specialty Start Date End Date Ida Cotter MD [address] [place] [address] PCP - General Family Practice 01/22/23 Eric Winter MD [address], [place] [address] [address] [place] [address] Cardiology Cardiovascular Disease 01/20/12 Maureen Marquez NP [address] [place] [address] Nurse Practitioner - Family 07/26/23 Oswald Nesbitt, RN [address] [place] [address] Registered Nurse 07/26/23
--- OUTSIDE RECORDS SUMMARY | 2024-08-15 06:16 | XMS_ITS | Encounter Summary ---
Author Organization [facility] Address [address] [place] [address] Care Team Providers Care Silver Solderer Name Role Phone Farhad Calvo Primary Care Provider Unavailabl e Encounter Details Date Type Department Care Team (Latest Contact Info) Description 06/21/2024 Travel Social History Tobacco Use Types Packs/Day Years Used Date Smoking Tobacco: Never Smokeless Tobacco: Never Alcohol Use Standard Drinks/Week Comments Not Currently 0 (1 standard drink = 0.6 oz pur e alcohol) Adolescent Education Answer Date Record ed Getting School Help Needed Not on file 05/29 Comments No Sex and Gender Information Value Date Recorded Sex Assigned at Not on file Legal Sex Female 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
--- OUTSIDE RECORDS SUMMARY | 2024-08-15 06:16 | XMS_ITS | Encounter Summary ---
Author Organization [facility] Address [address] [place] [id number] Care Team Providers Care Escape Wheel Tooth Cutter Name Role Phone Farhad Calvo Primary Care Provider Unavailabl e Encounter Details Date Type Department Care Team (Late st Contact Info) Description 02/09/2022 Orders Only [facility] Centralized Scheduling [address] [place] [address] Holland Laguna MD [address] [place] [address] Social History Tobacco Use Types Packs/Day Years Used Date Smoking Tobacco: Never Assessed Comments Unknown Sex and Gender Information Value Date Recorded Sex Assigned at Not on file Legal Sex Female 11:25 AM COMMERCIAL PRODUCER Gender Identity Not on file Sexual Orientation Not on file documented as of this encounter Plan of Treatment Not on file documented as of this encounter Visit Diagnoses Not on filedocumented in this encounter Care Teams Escape Wheel Tooth Cutter Relationship Specialty Start Date End Date Farhad Calvo PCP - General Family Medicine 03/05/22 documented as of this encounter
--- OUTSIDE RECORDS SUMMARY | 2024-08-15 06:16 | XMS_ITS | Referral Summary ---
Author Organization [facility] Address [address] [place] [address] Care Team Providers Care Fire Fighter Airport Name Role Phone Farhad Calvo Primary Care Provider Unavailabl e Encounters Date Type Department Care Team Description 06/21/2024 Travel 06/21/2024 9:44 AM CDT - 06/21/2024 11:59 PM CDT Hospital Encounter [facility] [address] [place] [phone] James Christopher MD Hepatitis Discharge Disposition: Home or Self Care from Last 3 Months Allergies Active Allergy Reactions Criticality Noted Date Comments Buspirone Other (See Comments) 01/21/2022 FELT PANICY Citalopram 01/21/2022 FELT PANICY Medications LORazepam (ATIVAN) 0.5 MG tablet Take 0.5 [...] pain 1-2 Active oxyCODONE (ROXICODONE) 5 MG tabletIndicatio ns:Status post bilateral breast reduction Take 1-2 tablets (5-10 mg) by mouth every 4 hours as needed for moderate to severe pain 20 tablet 03/05/2022 Active senna-docusate (SENOKOT-S/CASTILLO COLACE) 8.6-50 MG tabletIndicatio ns:Status post bilateral breast reduction Take 1-2 tablets [...] on file 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 Gender Identity Not on file Sexual Orientation Not on file Last Filed Vital Signs Vital Sign Reading Time Taken Comments Blood Pressure 114/82 03/05/2022 1:27 PM CDT Pulse 77 03/05/2022 1:27 PM CDT Temperature 35.9 C (96.6 F) 03/05/2022 1:27 PM CDT Respiratory Rate 16 03/05/2022 1:27 PM CDT Oxygen Saturation 97% 03/05/2022 1:27 PM CDT Inhaled Oxygen Concentration - - Weight 89.8 kg (198 lb) 03/05/2022 6:01 AM CDT Height 157.5 cm (5' 2) 03/05/2022 6:01 AM CDT Body Mass Index 36.21 03/05/2022 6:01 AM CDT Plan of Treatment Not on file Procedures Procedure Name Priority Date/Time Associated Diagnosis Comments MR ABDOMEN MRCP W/O & W CONTRAST Routine 06/21/2024 11:53 AM CDT Hepatitis from Last 3 Months Results * MR Abdomen MRCP w/o & w Contrast (06/21/2024 11:53 AM CDT) Anatomical Region Laterality Modality Abdomen/Pelvis, SUBRAD MR BODY, UMP MR BODY, RAD MR Magnetic Resonance Impressions 06/21/2024 12:45 PM CDT IMPRESSION: 1. Diffuse hepatic steatosis is present. 3 mm cystic lesion is present within the right hepatic lobe. 2. Cholelithiasis seen within the gallbladder. 3. Mild wall thickening of the stomach, suspected to be due to underdistention given lack of surrounding inflammatory changes. Gastritis is less likely. However, if further concern, consider correlation with endoscopy. TYLER LEMUS MD SYSTEM ID: [id number] Narrative 06/21/2024 12:45 PM CDT MR ABDOMEN MRCP W/O & W CONTRAST 06/21/2024 11:53 AM HISTORY: Hepatitis TECHNIQUE: Multisequence, multiplanar imaging of the abdomen was performed without IV gadolinium contrast. A total of 9 ml gadavist gadolinium contrast was then administered intravenously. Additional dynamic postcontrast T1 fat-sat sequences were performed. MRCP imaging was also performed. Three-dimensional MRCP was performed using maximum intensity projection reconstruction on the same workstation. COMPARISON: None. FINDINGS: LOWER CHEST: The visualized lung bases are clear. HEPATOBILIARY: Diffuse hepatic steatosis is present. 3 mm cystic lesion is seen within the right hepatic lobe. No evidence for fatty infiltration of the liver. No biliary dilatation. Cholelithiasis is present in the gallbladder. PANCREAS: Unremarkable. SPLEEN: Normal size. ADRENAL GLANDS: No significant nodules. KIDNEYS: Unremarkable. No hydronephrosis. BOWEL: Visualized loops of small bowel and colon are of normal caliber. Mild wall thickening is noted along the stomach which may be due to underdistention given lack of surrounding fat stranding. LYMPH NODES: No enlarged lymph nodes are identified in the abdomen. VASCULATURE: No abdominal aortic aneurysm. ADDITIONAL FINDINGS: None. MUSCULOSKELETAL: Unremarkable. Procedure Note Tyler Lemus MD - 06/21/2024 MR ABDOMEN MRCP W/O & W CONTRAST 06/21/2024 11:53 AM HISTORY: Hepatitis TECHNIQUE: Multisequence, multiplanar imaging of the abdomen was performed without IV gadolinium contrast. A total of 9 ml gadavist gadolinium contrast was then administered intravenously. Additional dynamic postcontrast T1 fat-sat sequences were performed. MRCP imaging was also performed. Three-dimensional MRCP was performed using maximum intensity projection reconstruction on the same workstation. COMPARISON: None. FINDINGS: LOWER CHEST: The visualized lung bases are clear. HEPATOBILIARY: Diffuse hepatic steatosis is present. 3 mm cystic lesion is seen within the right hepatic lobe. No evidence for fatty infiltration of the liver. No biliary dilatation. Cholelithiasis is present in the gallbladder. PANCREAS: Unremarkable. SPLEEN: Normal size. ADRENAL GLANDS: No significant nodules. KIDNEYS: Unremarkable. No hydronephrosis. BOWEL: Visualized loops of small bowel and colon are of normal caliber. Mild wall thickening is noted along the stomach which may be due to underdistention given lack of surrounding fat stranding. LYMPH NODES: No enlarged lymph nodes are identified in the abdomen. VASCULATURE: No abdominal aortic aneurysm. ADDITIONAL FINDINGS: None. MUSCULOSKELETAL: Unremarkable. IMPRESSION: 1. Diffuse hepatic steatosis is present. 3 mm cystic lesion is present within the right hepatic lobe. 2. Cholelithiasis seen within the gallbladder. 3. Mild wall thickening of the stomach, suspected to be due to underdistention given lack of surrounding inflammatory changes. Gastritis is less likely. However, if further concern, consider correlation with endoscopy. TYLER LEMUS MD SYSTEM ID: [id number] James Christopher MD IMG MRI ORDERABLES Final Result from Last 3 Months Insurance [facility] Care Teams Fire Fighter [employer] Relationship Specialty Start Date End Date Farhad Calvo PCP - General Family Medicine 03/05/22
--- OUTSIDE RECORDS SUMMARY | 2024-08-15 06:16 | XMS_ITS | Encounter Summary ---
Author Organization [facility] Address [address] [place] [address] Care Team Providers Care Dry Ice Machine Operator Name Role Phone Farhad Calvo Primary Care Provider Unavailabl e Reason for Referral * Diagnostic Imaging MRI (Routine) - Closed Specialty Diagnoses / Procedures Referred By Citlalli garrison Referred To Contact Radiology. Diagnoses Hepatitis Procedures MR Abdomen MRCP w/o & w Contrast James Christopher MD [facility] [address] [place] [address] Phone: tel: fax: Referral ID Status Reason Start Date Expiration Date Visits Re quested Visits Authorized [id number] Closed 06/05/2024 06/05/2025 1 1 Reason for Visit * Diagnostic Imaging MRI (Routine) - Closed Specialty Diagnoses / Procedures Referred By Citlalli garrison Referred To Contact Radiology. Diagnoses Hepatitis Procedures MR Abdomen MRCP w/o & w Contrast James Christopher MD [facility] [address] [place] [address] Phone: tel: fax: Referral ID Status Reason Start Date Expiration Date Visits Re quested Visits Authorized [id number] Closed 06/05/2024 06/05/2025 1 1 Encounter Details Date Type Department Care Team (Late st Contact Info) Description 06/21/2024 9:44 AM CDT - 06/21/2024 11:59 PM CDT Hospital Encounter [facility] [address] 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 Gender Identity Not on file Sexual Orientation Not on file documented as of this encounter Medications at Time of Discharge acetaminophen (TYLENOL) 325 MG tablet Take 325-650 mg by mouth every 6 hours as needed for mild pain 1-2 tabs ibuprofen (ADVIL/MOTRIN) 200 MG tablet Take 200 mg by mouth every 6 hours as needed for mild pain 2-4 tabs LORazepam (ATIVAN) 0.5 MG tablet Take 0.5 mg by mouth 2 times daily as needed for anxiety 0.5-1 tablet oxyCODONE (ROXICODONE) 5 MG tabletIndications :Status post bilateral breast reduction Take 1-2 tablets (5-10 mg) by mouth every 4 hours as needed for moderate to severe pain 20 tablet 03/05/2022 oxyCODONE (ROXICODONE) 5 MG tablet Take 5 mg by mouth every 4 hours as needed for severe pain 1-2 senna-docusate (SENOKOT-S/AIDE LACE) 8.6-50 MG tabletIndications :Status post bilateral breast reduction Take 1-2 tablets by mouth 2 times daily 120 Units 03/05/2022 venlafaxine (EFFEXOR XR) 37.5 MG 24 hr capsule Take 37.5 mg by mouth daily documented as of this encounter Plan of Treatment Not on file documented as of this encounter Procedures Procedure Name Priority Date/Time Associated Diagnosis Comments MR ABDOMEN MRCP W/O & W CONTRAST Routine 06/21/2024 11:53 AM CDT Hepatitis documented in this encounter Results * MR Abdomen MRCP w/o & [...] with endoscopy. TYLER LEMUS MD SYSTEM ID: [id number] Narrative 06/21/2024 12:45 PM CDT MR ABDOMEN [...] with endoscopy. TYLER LEMUS MD SYSTEM ID: [id number] James Christopher MD [facility] MRI ORDERABLES Final Result documented in this encounter Visit Diagnoses Diagnosis Hepatitis Hepatitis, unspecified documented in this encounter Administered Medications Inactive Administered Medications - up to 3 most recent administrations Medication Order MAR Action Action Date Dose Rate Site gadobutrol (GADAVIST) injection 0.1 mL/kg 0.1 mL/kg, Intravenous, ONCE, On Wed06/21/24 at 1130, For 1 dose, Supplied by, and administered by MRI. $Given 06/21/2024 11:54 AM CDT 9 mLs documented in this encounter Care Teams Dry Ice Machine Operator Relationship Specialty Start Date End Date Farhad Calvo PCP - General Family Medicine 03/05/22 documented as of this encounter
--- OUTSIDE RECORDS SUMMARY | 2024-08-15 06:16 | XMS_ITS | Clinical Summary ---
Author Organization [facility] Address [address] [place] [address] Care Team Providers Care Scrap Bunch Maker Name Role Phone Farhad Calvo Primary Care Provider Unavailabl e Allergies Active Allergy Reactions Criticality Noted [...] 2 times daily 120 Units 03/05/2022 Active Encounters Date Type Department Care Team Description 06/21/2024 9:44 AM CDT - 06/21/2024 11:59 PM CDT Hospital Encounter [facility] [address] [place] [phone] James Christopher MD Hepatitis Discharge Disposition: Home or Self Care 06/21/2024 Travel from Last 3 Months Social History Tobacco Use Types Packs/Day Years [...] on file 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 Gender Identity Not on file Sexual Orientation [...] REVIEW OF HM ORDERS 1987 GLUCOSE 1987 HIV SCREENING 11/14/2002 HEPATITIS C SCREENING 11/14/2005 HEPATITIS B IMMUNIZATION (1 of 3 - 19+ 3-dose series) 11/14/2006 PHQ-2 (once per calendar year) 2023 YEARLY PREVENTIVE VISIT 05/29/2025 05/29/2024, 06/22 PAP 06/22/2025 06/22/2022 DTAP/TDAP/TD IMMUNIZATION (3 - Td or Tdap) 09/10/2027 09/10/2017, 01/05/2011 RSV VACCINE (1 - 1-dose 75+ series) 11/14/2062 HPV IMMUNIZATION Completed 07/18/2013, 12/2012, 07/09/2011 COVID-19 Vaccine Completed 05/29/2024, , 08/19/2021, Additional history exists INFLUENZA VACCINE Completed 05/29/2024, , 06/11/2022, Additional history exists MENINGITIS IMMUNIZATION Aged Out No l onger [...] with endoscopy. TYLER LEMUS MD SYSTEM ID: [id number] Narrative 06/21/2024 12:45 PM CDT MR ABDOMEN [...] with endoscopy. TYLER LEMUS MD SYSTEM ID: [id number] James Christopher MD IMG MRI ORDERABLES Final Result from Last 3 Months Insurance [facility] Care Teams Scrap Bunch Maker Relationship Specialty Start Date End Date Farhad Calvo PCP - General Family Medicine 03/05/22
[2024-08-15] MEDS: SODIUM CHLORIDE 0.9 % (FLUSH) 10 ML SYRINGE IVF (06:35)
[2024-08-15] MEDS: 0.9 % SODIUM CHLORIDE 500 ML 500 ML 100 ML IV ×3 (06:36→09:50)
[2024-08-15 06:49] LABS: Ur HCG Qualitative* Negative (Negative)
--- NOTE | 2024-08-15 07:25 | W.PM.H&PU ---
History & Physical Update History & Physical Update H&P Reviewed and patient assessed: No changes noted
[2024-08-15] MEDS: CEFAZOLIN 2 GM INJ IVP (07:43)
[2024-08-15] MEDS: BUPIVACAINE 0.5% 30 ML INJECTION (07:58)
--- NOTE | 2024-08-15 08:57 | PM.GSPRC ---
Operative Note Date of procedure: 08/15/24 Pre-op diagnosis: Chronic cholecystitis Post-op diagnosis: Same Type of Procedure: Laparoscopic cholecystectomy Indications: Patient is a 38-year-old female who presented to clinic with symptomatic, chronic cholecystitis. Risks and benefits of operative intervention were discussed at length with the patient. Risks included but was not limited to: Bleeding, infection, risk of damage to surrounding structures, possible need for additional procedures, possible need to convert to an open operation and postoperative complications such as pneumonia, pulmonary emboli or MT. All questions and concerns were addressed with the patient agreeing to proceed. Procedure Description: After discussing the risks and benefits of the procedure, the patient signed informed consent.? The operative site was marked and the patient was brought to the operating room and placed on the operating table in supine position.? Care was taken to pad the patient's pressure points.?? The patient was then intubated by anesthesia.?? The operative site was then prepped and draped in the usual sterile fashion.? A time-out was then performed. Entrance to the abdomen was gained via a 5 mm Visiport in the left upper quadrant. The abdomen was insufflated and briefly surveyed for signs of injury. There was none. 11 mm umbilical port was placed as well as 2 working ports along the right costal margin. Patient was then placed in reverse Trendelenburg position with the right side up. The gallbladder fundus was grasped and retracted cephalad. The infundibulum was grasped. A combination of hook cautery and blunt dissection was used to carefully dissect out the cystic duct and artery. The cystic duct was somewhat torturous and full of stones, this was fully dissected out until it could clearly be seen entering the gallbladder without any intervening structures. During dissection of the cystic duct a large vein that was associated with the duct was clipped with 5 mm clips and transected. The gallbladder was dissected off the cystic plate to achieve the critical view. Once this was achieved the cystic duct and artery were each clipped with 2 clips proximally and 1 clip distally and transected with the scissors. The gallbladder was then taken off of the liver bed and removed from the abdomen using an Endo-Catch bag. The gallbladder bed was surveyed for hemostasis, which was excellent. The ports were then removed under direct vision. The umbilical port fascia was closed with 0 Vicryl. The skin was closed with absorbable subcuticular suture. Instrument sponge and needle counts were correct at the end of the case. The patient was then woken and transferred to the PACU in stable condition. Findings: Cholelithiasis Anesthesia: GETA Surgeon: Yolis Ridley MD Estimated blood loss (mL): 5 Specimen: Gallbladder Condition: stable Disposition: PACU
--- NOTE | 2024-08-15 09:14 | W.ANESCHARGE ---
Anesthesia Charges Start Date/Time Anesthesia Start Date: 08/15/24 Anesthesia Start Time: 07:30 Stop Date/Time Anesthesia Stop Date: 08/15/24 Anesthesia Stop Time: 09:15
[2024-08-15] MEDS: fentaNYL 100 MCG/2 ML inj 50 MCG IVP ×2 (09:27→09:34)
--- NOTE | 2024-08-15 09:30 | W.ANESCHARGE ---
Anesthesia Charges Start Date/Time Anesthesia Start Date: 08/15/24 Anesthesia Start Time: 07:30 Stop Date/Time Anesthesia Stop Date: 08/15/24 Anesthesia Stop Time: 09:15
[2024-08-15] MEDS: HYDROCODONE-ACETAMIN 5-325 MG 1 TAB PO (10:15)
--- NOTE | 2024-08-15 10:23 | SUR.PHASEII ---
Patient tolerated water, crackers, apple juice.
[2024-08-15] MEDS: hydrOXYzine pamoate 25 MG CAPSULE PO (11:44)
== END 2024-08-15 12:11 | disposition home or self-care (01) ==
PROVIDERS: Anesthesiology; PCP Family Medicine; Visit Provider Surgery
PROC: 0FT44ZZ Resection of Gallbladder, Percutaneous Endoscopic Approach (ICD-10-PCS; CPT 47562; principal; 2024-08-15 07:30)
DX: K80.10 Calculus of gallbladder with chronic cholecystitis without obstruction (principal)
CPT/HCPCS: 47562; 00790; 81025; 88304; A9270; J0330; J0665; J0690; J1100; J1171; J2250; J2371; J2405; J2704; J2710; J3010; J7030